=== PATIENT | male | born 1985 | race Caucasian/White ===

== ENCOUNTER 2021-03-22 16:18 | Emergency (ER) | payer OTHER ==
[~2021-03-22] VITALS: Ht 177.8 cm; Wt 104.3 kg
[2021-03-22 16:30] VITALS: BP 147/88
[2021-03-22 16:47] VITALS: BP 147/88
[2021-03-22] MEDS ORDERED: ONDANSETRON 4 MG/2 ML VIAL IVP ONE (16:50)
[2021-03-22] MEDS ORDERED: NACL 0.9% 1,000 ML IV ONE (16:50)
== END 2021-03-22 16:57 | disposition left against medical advice (07) ==
LOC: MED 16:18
DX: F41.9 Anxiety disorder, unspecified (principal); R06.02 Shortness of breath; R42 Dizziness and giddiness; F20.9 Schizophrenia, unspecified; F84.0 Autistic disorder; Z88.5 Allergy status to narcotic agent; Z98.890 Other specified postprocedural states
CPT/HCPCS: 99283